=== PATIENT | female | born 1950 | race Caucasian/White ===

== ENCOUNTER 2017-07-17 06:12 | Outpatient (CLI) | payer OTHER | END 2017-07-17 06:17 | disposition home or self-care (01) | LOC: LAB 06:12 | DX: Z12.11 Encounter for screening for malignant neoplasm of colon (principal); I11.9 Hypertensive heart disease without heart failure; E11.9 Type 2 diabetes mellitus without complications ==

== ENCOUNTER 2017-07-27 07:38 | Outpatient (CLI) | payer OTHER | END 2017-07-27 07:52 | disposition home or self-care (01) | LOC: MAMO-SONO 07:38 | DX: Z12.31 Encounter for screening mammogram for malignant neoplasm of breast (principal) ==

== ENCOUNTER 2017-10-29 06:17 | Outpatient (CLI) | payer OTHER | END 2017-10-29 07:46 | disposition home or self-care (01) | LOC: LAB 06:17 | DX: E11.65 Type 2 diabetes mellitus with hyperglycemia (principal) ==